=== PATIENT | female | born 1980 | race Caucasian/White ===

== ENCOUNTER → 2017-02-20 | Outpatient (CLI) | payer OTHER, BC ==
[~2017-02-20] MED LIST: METR500T4 PO
== END | disposition home or self-care (01) ==
LOC: STAR 11:55
PROVIDERS: ATTEND Obstetrics & Gynecology Gynecology
DX: Z01.818 Encounter for other preprocedural examination (principal); N92.0 Excessive and frequent menstruation with regular cycle
CPT/HCPCS: 36415; 84703; 85014; 85018

== ENCOUNTER 2017-02-27 08:37 | Day surgery (SDC) | payer OTHER, BC ==
[~2017-02-27] VITALS: Ht 177.8 cm; Wt 79.6 kg
[~2017-02-27 08:37] MED LIST changes: +BUPIVACAINE/PF 0.25% ONE; +EPINEPHRINE 1 MG/ML, 1ML ONE
[2017-02-27 09:20] VITALS: BP 113/78
[2017-02-27] MEDS ORDERED: LACTATED RINGERS 1,000 ML IV SCH (09:25)
[2017-02-27] MEDS ORDERED: LIDOCAINE 1%, 2ML SQ PRN (09:30)
[2017-02-27] MEDS ORDERED: LIDOCAINE 1%, 2ML ONE (09:37)
[2017-02-27] MEDS ORDERED: SCOPOLAMINE PATCH, 1.5MG PATCH.TD72 TD ONE ×2 (09:41)
[2017-02-27] MEDS ORDERED: FENTANYL PF 250 MCG/5ML ONE (10:17)
[2017-02-27] MEDS ORDERED: MIDAZOLAM 1 MG/ML, 2ML ONE (10:17)
[2017-02-27 10:20] LABS: HCG UR OBC PASS
[2017-02-27] MEDS ORDERED: HYDROmorphone 1 MG/ML, 1ML IV PRN (10:30)
[2017-02-27] MEDS ORDERED: OXYcodone 5 MG/5 ML ORAL.SOL UDC PO PRN (10:30)
[2017-02-27] MEDS ORDERED: MEPERIDINE/PF 25MG/0.5ML IVPush PRN (10:30)
[2017-02-27] MEDS ORDERED: ONDANSETRON 2MG/ML, 2ML IVPush PRN (10:30)
[2017-02-27] MEDS ORDERED: HYDROcodone/APAP 7.5-325MG/15ML UDC PO PRN (10:30)
[2017-02-27] MEDS ORDERED: PROMETHAZINE 25 MG/ML, 1ML IV PRN (10:30)
[2017-02-27] MEDS ORDERED: MIDAZOLAM 1 MG/ML, 2ML IV PRN (10:30)
[2017-02-27] MEDS ORDERED: ACETAMINOPHEN 325 MG TABLET PO PRN (10:30)
[2017-02-27] MEDS ORDERED: PROPOFOL 10 MG/ML, 50ML ONE (10:37)
[2017-02-27] MEDS ORDERED: CEFAZOLIN 1,000 MG ONE (10:37)
[2017-02-27] MEDS ORDERED: DEXAMETHASONE 4 MG/ML, 1ML ONE (10:37)
[2017-02-27] MEDS ORDERED: KETOROLAC 30 MG/1 ML ONE (10:37)
[2017-02-27] MEDS ORDERED: ONDANSETRON 2MG/ML, 2ML ONE (10:37)
[2017-02-27] MEDS ORDERED: SILVER NITRATE STICK TP ONE (11:40)
[2017-02-27] MEDS ORDERED: ACETAMINOPHEN 325 MG/10.15 ML UDC ONE (12:02)
[2017-02-27] MEDS ORDERED: ACETAMINOPHEN 650 MG/20.3 ML UDC ONE (12:02)
[2017-02-27] MEDS ORDERED: OXYcodone 5 MG/5 ML ORAL.SOL UDC ONE (12:02)
[2017-02-27] MEDS ORDERED: FENTANYL PF 100 MCG/2ML ONE (12:02)
[2017-02-27] MEDS: FENTANYL PF 100 MCG/2ML IV PRN ×2 (12:05→12:11)
[2017-02-27] MEDS ORDERED: MORPHINE SULFATE 4 MG/ML, 1ML ONE (14:02)
[2017-02-27] MEDS ORDERED: MORPHINE SULFATE 4 MG/ML, 1ML IVPush PRN (14:30)
== END 2017-02-27 14:37 ==
LOC: OUT 08:37
PROVIDERS: ATTEND Obstetrics & Gynecology Gynecology
DX: N93.9 Abnormal uterine and vaginal bleeding, unspecified (principal); D25.0 Submucous leiomyoma of uterus; N92.5 Other specified irregular menstruation; N94.4 Primary dysmenorrhea; Z72.89 Other problems related to lifestyle
CPT/HCPCS: 58563; 81025; 88305; J0171; J0690; J1100; J1885; J2250; J2405; J2704; J3010; J3490